=== PATIENT | male | born 1960 | race Caucasian/White ===

== ENCOUNTER → 2016-09-29 | Outpatient (CLI) | payer OTHER ==
[2016-10-01 21:11] LABS: HSV 1 PCR Negative (Negative); VARICELLA-ZOSTER SOURCE HAND RIGHT (())
[2016-10-02 07:21] LABS: HSV 2 PCR Negative (Negative); VARICELLA ZOSTER PCR RESULT Negative (Negative)
== END ==
LOC: MOB LAB 16:18
PROVIDERS: ATTEND Physician Assistant
DX: R21 Rash and other nonspecific skin eruption (principal)
CPT/HCPCS: 87070; 87205; 87252; 87529; 87798

== ENCOUNTER 2016-11-01 10:25 | Emergency (ER) | payer OTHER ==
[2016-11-01 10:46] VITALS: RESP 18; TEMP 98.4
[2016-11-01 10:51] LABS: BASOPHILS # (AUTO) 0.04 10*3/UL; BASOPHILS % (AUTO) 0.3 % (0-1); EOSINOPHILS # (AUTO) 0.09 10*3/UL; EOSINOPHILS % (AUTO) 0.8 % (0-8); HEMATOCRIT 44.9 % (42.0-52.0); HEMOGLOBIN 15.2 g/dL (14.0-18.0); LYMPHOCYTES # (AUTO) 1.95 10*3/uL; MEAN CORPUSCULAR HEMOGLOBIN 29.6 PG (27-31); MEAN CORPUSCULAR HGB CONC 33.9 g/dL (33-37); MEAN CORPUSCULAR VOLUME 87.5 FL (80-90); MEAN PLATELET VOLUME 9.2 FL (7.4-12.2); MONOCYTES % (AUTO) 7.5 % (5-15); NEUTROPHILS % (AUTO) 74.6 % (50-80); RED BLOOD COUNT 5.13 10^6/uL (4.70-6.10)
[2016-11-01 10:52] LABS: PLATELET MORPHOLOGY COMMENT NORMAL MORPHOLOGY (NORM); RBC MORPHOLOGY COMMENT NORMAL MORPHOLOGY (NORM); WBC MORPHOLOGY COMMENT NORMAL MORPHOLOGY (NORM)
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
[2016-11-01 11:00] LABS: BLOOD UREA NITROGEN 18 mg/dL (7-22); CALCIUM 8.6 mg/dL (8.7-10.7); EST GLOMERULAR FILTRATION > 60 (>60 ml/min/1.73m(2)); SERUM ALBUMIN 3.9 g/dL (3.5-4.8)
== END 2016-11-01 11:24 | disposition home or self-care (01) ==
LOC: ER 10:25
DX: L30.9 Dermatitis, unspecified (principal); L30.1 Dyshidrosis [pompholyx]
CPT/HCPCS: 36415; 80053; 85025; 87070; 87077; 87185; 87186; 87205; 99282